=== PATIENT | female | born 1955 | race Caucasian/White ===

== ENCOUNTER 2017-09-24 13:01 | Day surgery (SDC) | payer OTHER ==
[2017-09-24] MEDS ORDERED: MIDAZOLAM 1 MG/ML 2 ML INJ ×3 (15:31→15:32)
[2017-09-24] MEDS ORDERED: FENTAnyl 50 MCG/ML VIAL ×2 (15:31)
== END 2017-09-24 18:23 | disposition home or self-care (01) ==
LOC: GIL 13:01
DX: K92.1 Melena (principal); D12.5 Benign neoplasm of sigmoid colon; E11.9 Type 2 diabetes mellitus without complications; I10 Essential (primary) hypertension; J45.909 Unspecified asthma, uncomplicated
CPT/HCPCS: 45380; 82962; 88305